=== PATIENT | female | born 1960 | race Caucasian/White ===

== ENCOUNTER 2020-08-01 12:57 | Emergency (ER) | payer SELFPAY ==
[~2020-08-01] VITALS: Ht 167.6 cm; Wt 60.5 kg
[2020-08-01 14:19] LABS: BASOPHILS % (AUTO) 0.3 % (0-1); EOSINOPHILS # (AUTO) 0.5 X10'3 (0-0.9); EOSINOPHILS % (AUTO) 4.5 % (0-6); HEMATOCRIT 42.7 % (35.0-45.0); HEMOGLOBIN 14.5 g/dl (12.0-16.0); LYMPHOCYTES # (AUTO) 3.3 X10'3 (1.1-4.8); LYMPHOCYTES % (AUTO) 30.6 % (21-51); MEAN CORPUSCULAR HEMOGLOBIN 33.7 PG (27.0-31.0); MEAN CORPUSCULAR HGB CONC 33.9 g/dL (33.0-36.5); MEAN CORPUSCULAR VOLUME 99.6 FL (78-98); MEAN PLATELET VOLUME 7.5 FL (7.4-10.4); MONOCYTES # (AUTO) 0.7 X10'3 (0-0.9); MONOCYTES % (AUTO) 6.7 % (2-12); NEUTROPHILS # (AUTO) 6.3 X10'3 (1.8-7.7); NEUTROPHILS % (AUTO) 57.9 % (42-75); PLATELET COUNT 444 X10'3 (140-440); RED BLOOD COUNT 4.29 X10'6 (4.20-5.60); RED CELL DISTRIBUTION WIDTH 14.8 % (11.5-14.5); WHITE BLOOD COUNT 10.9 X10'3 (4.5-11.0)
[2020-08-01 14:36] LABS: ALANINE AMINOTRANSFERASE 19 U/L (12-78); ALBUMIN 3.6 G/DL (3.4-5.0); ALBUMIN/GLOBULIN RATIO 0.9 (1.1-1.5); ALKALINE PHOSPHATASE 94 IU/L (46-116); ANION GAP 13 (8-16); ASPARTATE AMINO TRANSFERASE 14 U/L (10-37); BILIRUBIN,TOTAL 0.2 MG/DL (0.1-1.0); BLOOD UREA NITROGEN 15 MG/DL (7-18); BUN/CREATININE RATIO 22.4 (6.6-38.0); CALCIUM 9.3 MG/DL (8.5-10.1); CHLORIDE 106 MMOL/L (99-107); CREATININE 0.67 MG/DL (0.40-0.90); GLUCOSE 110 MG/DL (70-104); POTASSIUM 3.7 MMOL/L (3.5-5.1); SODIUM 143 MMOL/L (135-145); TOTAL CARBON DIOXIDE 23.6 MMOL/L (24-32); TOTAL PROTEIN 7.6 G/DL (6.4-8.2); eGFR 90 ML/MIN
--- NOTE | 2020-08-01 16:28 | NUR ---
PATIENT STATES THAT SHE FX HER LEFT ANKLE ON 06/09 FELL AND DENIES HITTING HEAD. CAST TAKEN OFF SATURDAY. 2 WEEKS POST FALL/FX : HANDS NUMB; SINCE SATURDAY: FINGERS TO UPPER ARMS AND SHOULDER NUMB PATIENT WENT TO [facility] AFTER FALL AND FOLLOWED UP WITH XIN MCDANIELS
--- NOTE | 2020-08-01 16:31 | NUR ---
PATIENT STATES THAT SHE CAN NOT FEEL HER FINGERS BUT SHE IS ABLE TO UNDRESS HERSELF WITHOUT HELP
--- NOTE | 2020-08-01 16:33 | NUR ---
DR BUSTAMANTE AT BEDSIDE PATIETN HERE DUE TO WORSENING NUMBNESS
[2020-08-01 17:55] VITALS: BP 169/89
--- NOTE | 2020-08-01 18:30 | NUR ---
Upon returning from lunch where maggie jon covered my patients, I noted that this patient and all her belongings were gone. Dr Luis and conveyor line battery chargerZONIA Fakl informed
--- NOTE | 2020-08-01 18:35 | NUR ---
discussed elopement with dayshift charge greg. unable to call patient because no demographic data was obtained, no known phone number, discharge door operator aware
== END 2020-08-01 18:31 | disposition home or self-care (01) ==
LOC: ER 12:58
DX: R53.1 Weakness (principal); R20.0 Anesthesia of skin; G62.9 Polyneuropathy, unspecified; F17.200 Nicotine dependence, unspecified, uncomplicated; Z72.89 Other problems related to lifestyle; Z88.1 Allergy status to other antibiotic agents; Z88.8 Allergy status to other drugs, medicaments and biological substances
CPT/HCPCS: 36415; 72125; 72128; 72131; 80053; 85025; 99285

== ENCOUNTER 2023-08-03 10:58 | Emergency (ER) | payer MEDICARE, MEDICAID ==
[~2023-08-03] VITALS: Ht 154.9 cm; Wt 66.1 kg
[2023-08-03 10:59] VITALS: PULSE 95; TEMP 98; O2SAT 94
[2023-08-03] MEDS ORDERED: PRED20TA PO (14:18)
[2023-08-03 14:39] VITALS: RESP 17
[2023-08-03] MEDS: ketorolac trometh inj. 60 MG/2 ML VIAL IM ONE (14:39)
== END 2023-08-03 14:49 | disposition home or self-care (01) ==
LOC: ER 10:59
DX: S39.012A Strain of muscle, fascia and tendon of lower back, initial encounter (principal); M25.551 Pain in right hip; X58.XXXA Exposure to other specified factors, initial encounter; Y93.89 Activity, other specified; Y92.89 Other specified places as the place of occurrence of the external cause; Y99.8 Other external cause status
CPT/HCPCS: 73502; 96372; 99283; J1885